=== PATIENT | female | born 1965 | race Hispanic/Latino ===

== ENCOUNTER 2021-10-26 16:10 | Emergency (ER) | payer SELFPAY ==
[2021-10-26] MEDS ORDERED: Ondansetron PF 4 MG/2 ML Vial ONE (17:05)
[2021-10-26] MEDS ORDERED: Morphine 4 MG/ML VIAL ONE (17:05)
[2021-10-26] MEDS ORDERED: Piperacillin/Tazobactam 4.5 GM VIAL ONE (17:23)
[2021-10-26 17:28] LABS: ALT (SGPT) 27 U/L (8-55); AST (SGOT) 27 U/L (5-34); Albumin 3.5 g/dL (3.5-5.0); Alkaline Phosphatase 171 U/L (40-110); Anion Gap 21 mmol/L (10-20); BUN (Urea Nitrogen) 54 mg/dL (9.8-20.1); Bilirubin, Total 0.8 mg/dL (0.2-1.2); Calc. Creatinine Clearance 0 mL/min (70-130); Calcium 8.9 mg/dL (7.8-10.44); Carbon Dioxide 17 mmol/L (22-29); Chloride 100 mmol/L (98-107); Globulin 4.1 g/dL (2.4-3.5); Glucose 107 mg/dL (70-105); Lipase 10 U/L (8-78); Potassium 3.4 mmol/L (3.5-5.1); Protein, Total 7.6 g/dL (6.0-8.3); Sodium 135 mmol/L (136-145)
[2021-10-26 17:29] LABS: Hemoglobin 12.3 g/dL (12.0-16.0); Mean Corpuscular HGB CONC 32.9 g/dL (32.0-36.0); Mean Corpuscular Hemoglobin 30.7 pg (27.0-31.0); Mean Corpuscular Volume 93.4 fL (78.0-98.0); Mean Platelet Volume 8.5 fL (7.4-10.4); Platelet Count 107 thou/uL (130-400); RBC Distribution Width 13.9 % (11.5-14.5); Red Blood Cell (RBC) Count 3.99 mill/uL (4.20-5.40); White Blood Cell (WBC) Count 13.2 thou/uL (4.8-10.8)
[2021-10-26 17:36] LABS: BHCG - Serum Negative (NEGATIVE); Pregs Control Background? CLEAR/WHITE (CLR/WHITE); Pregs Control Bar Appear? YES (CONTROL BAR)
[2021-10-26 18:25] LABS: Band 43 % (5-11); Eosinophils 1 % (0-10); Lymphocytes 5 % (21-51); MDiff Complete? YES; Monocytes 9 % (0-10); Neutrophil 41 % (42-75); Platelet Clumps SLIGHT; Platelet Morphology Comment Appears Decreased; Reactive Lymphocytes 1 % (0-10); Reflex for Review?? YES; Toxic Granulation SLIGHT
[2021-10-26 19:21] LABS: Bilirubin Negative (Negative); Blood, Urine Large (Negative); Clarity Cloudy (Clear); Glucose, Urine (Dipstick) Negative (Negative); Ketone, Urine Negative (Negative); Leukocyte Large (Negative); Nitrite Negative (Negative); Protein, Urine (Dipstick) 100 mg/dL (Neg-Trace); Urobilinogen 0.2 mg/dL (Less than 2)
[2021-10-26 19:54] LABS: SARS-CoV-2 NAA Rapid Test Not Detected (NotDetected)
[2021-10-26 19:57] LABS: Lactic Acid 3.2 mmol/L (0.5-2.2)
[2021-10-26 20:08] LABS: Bacteria/HPF 1+ HPF (None Seen); Renal Epithelial 0-3 HPF (None Seen); Squamous Epithelial 0-3 HPF (0-3); WBC/HPF Greater than 50 HPF (0-3); White Blood Cell Cast 0-3 LPF (None Seen)
== END 2021-10-26 21:00 | disposition short-term general hospital (02) ==
LOC: BURERS 16:10
DX: A41.9 Sepsis, unspecified organism (principal); N20.1 Calculus of ureter; E87.2 Acidosis; N13.30 Unspecified hydronephrosis; Z20.822 Contact with and (suspected) exposure to COVID-19
CPT/HCPCS: 36415; 71045; 74176; 80053; 81003; 81015; 83605; 83690; 83880; 84484; 84703; 85025; 85060; 87040; 87077; 87086; 87149; 87186; 93005; 96365; 96375; J2270; J2405; J2543; U0002

== ENCOUNTER 2021-11-03 19:58 | Emergency (ER) | payer SELFPAY | END 2021-11-03 20:59 | disposition home or self-care (01) | LOC: BURERS 19:58 | DX: T83.84XA Pain due to genitourinary prosthetic devices, implants and grafts, initial encounter (principal); G89.18 Other acute postprocedural pain; Z87.442 Personal history of urinary calculi | CPT/HCPCS: 99283 ==